=== PATIENT | male | born 1990 | race African-American/Black ===

== ENCOUNTER 2017-10-03 14:01 | Emergency (ER) | payer OTHER ==
[~2017-10-03] VITALS: Ht 182.9 cm; Wt 81.7 kg
[~2017-10-03 14:01] MED LIST: MINOCIN100 MG PO; NAPROSYN500 MG PO
[2017-10-03 14:30] LABS: URINE BILIRUBIN NEGATIVE (Negative); URINE BLOOD NEGATIVE (Negative); URINE CLARITY CLEAR; URINE COLOR YELLOW; URINE GLUCOSE-RANDOM* NEGATIVE (Negative); URINE KETONES NEGATIVE (Negative); URINE LEUKOCYTES-REFLEX NEGATIVE (Negative); URINE NITRITE-REFLEX NEGATIVE (Negative); URINE PROTEIN (DIPSTICK) 1+ (Negative); URINE SPECIFIC GRAVITY 1.025 (1.005-1.035)
[2017-10-03 14:40] VITALS: BP 137/96
[2017-10-03 14:41] LABS: BACTERIA-REFLEX None Seen /HPF (None Seen); CASTS None Seen /LPF (None Seen); CRYSTALS None Seen /LPF (None Seen); MUCUS >6 Heavy strn/LPF (None Seen); SQUAMOUS 0-3 Few /LPF (0-3); URINE RBC 0-2 Rare /HPF (0-2); URINE WBC-REFLEX 0-5 Rare /HPF (0-5)
== END 2017-10-03 15:50 | disposition home or self-care (01) ==
LOC: ER 14:01
PROVIDERS: Physician Assistant
DX: Z20.2 Contact with and (suspected) exposure to infections with a predominantly sexual mode of transmission (principal); J45.909 Unspecified asthma, uncomplicated

== ENCOUNTER 2020-12-01 08:15 | Emergency (ER) | payer OTHER ==
[~2020-12-01] VITALS: Ht 182.9 cm; Wt 90.7 kg
[2020-12-01 08:32] VITALS: BP 126/91
[2020-12-01] MEDS ORDERED: BACTRIM DS TAB1 EACH PO (10:49)
== END 2020-12-01 10:43 | disposition home or self-care (01) ==
LOC: ER 08:15
DX: L03.113 Cellulitis of right upper limb (principal); L02.413 Cutaneous abscess of right upper limb; J45.909 Unspecified asthma, uncomplicated

== ENCOUNTER 2021-05-11 19:09 | Emergency (ER) | payer OTHER ==
[~2021-05-11] VITALS: Ht 185.4 cm; Wt 99.8 kg
[~2021-05-11 19:09] MED LIST changes: +BACTRIM DS TAB1 EACH PO
[2021-05-11 19:19] VITALS: BP 131/73
[2021-05-11] MEDS ORDERED: NOHOMEMEDICATIONS (19:33)
== END 2021-05-11 19:44 | disposition home or self-care (01) ==
LOC: ER 19:09
DX: R51.9 Headache, unspecified (principal); J45.909 Unspecified asthma, uncomplicated; Z90.89 Acquired absence of other organs; V89.2XXA Person injured in unspecified motor-vehicle accident, traffic, initial encounter; Y93.89 Activity, other specified; Y92.89 Other specified places as the place of occurrence of the external cause; Y99.8 Other external cause status